=== PATIENT | male | born 1975 | race Hispanic/Latino ===

== ENCOUNTER 2017-01-10 20:22 | Emergency (ER) | payer OTHER ==
[2017-01-10 20:36] VITALS: BMI 36.6
[2017-01-10 20:37] VITALS: BP 139/82; PULSE 81; RESP 16; TEMP 97.6; O2SAT 98
--- NOTE | 2017-01-10 20:58 | ED PDOC ---
HPI: Skin/Bite Injury Time Seen by Provider: 01/10/17 20:33 Chief Complaint (Nursing): Abnormal Skin Integrity Chief Complaint (Provider): laceration History Per: Patient Additional Complaint(s): Pt reports he was putting dishes away in dish drain, he accidentally hit a knife handle, knife flipped up and injured him, (+) laceration to right middle finger. Bleeding controlled with dressing. Pt states his co-workers placed a clotting powder on cut to stop bleeding and placed a dressing over it. T.dap is not UTD Past Medical History Reviewed: Nursing Documentation, Vital Signs Vital Signs: Last Vital Signs Temp 97.6 F 01/10/17 20:36 Pulse 81 01/10/17 20:36 Resp 16 01/10/17 20:36 BP 139/82 01/10/17 20:36 Pulse Ox 98 01/10/17 20:58 - Medical History PMH: No Chronic Diseases - Surgical History Surgical History: No Surg Hx - Family History Family History: States: No Known Family Hx - Living Arrangements Living Arrangements: With Family - Social History Current smoker - smoking cessation education provided: No Alcohol: Social Drugs: Denies - Allergies Allergies/Adverse Reactions: Allergies Allergy/AdvReac Type Severity Reaction Status Date / Time No Known Allergies Allergy Verified 01/10/17 20:36 Review of Systems ROS Statement: Except As Marked, All Systems Reviewed And Found Negative Skin: Positive for: Other (laceration) Physical Exam - Reviewed Nursing Documentation Reviewed: Yes Vital Signs Reviewed: Yes - Physical Exam Appears: Positive for: Well, Non-toxic, No Acute Distress Head Exam: Positive for: ATRAUMATIC, NORMAL INSPECTION, NORMOCEPHALIC Skin: Positive for: Normal Color, Warm, DRY Eye Exam: Positive for: EOMI, Normal appearance, PERRL ENT: Positive for: Normal ENT Inspection Neck: Positive for: Normal, Painless ROM Cardiovascular/Chest: Positive for: Regular Rate, Rhythm Respiratory: Positive for: CNT, Normal Breath Sounds Gastrointestinal/Abdominal: Positive for: Normal Exam, Bowel Sounds, Soft Back: Positive for: Normal Inspection Extremity: Positive for: Normal ROM, Other ((+) 2 cm laceration to fingertip pulp, no active bleeding) Neurologic/Psych: Positive for: Alert, Oriented - ECG O2 Sat by Pulse Oximetry: 98 Medical Decision Making Medical Decision Making: Wound care discussed. suture removal in 7-10 days Disposition - Clinical Impression Clinical Impression: Laceration - Patient ED Disposition Is Patient to be Admitted: No - Disposition Disposition: Routine/Home Disposition Time: 22:06 Condition: STABLE Additional Instructions: Suture removal in 7-10 days Instructions: Laceration (ED) Forms: [email or web address] ([place]) Laceration - Laceration Repair laceration Wound Length (In cm): 2 Description Of Wound: Linear Wound Cleansed With: Sterile Saline Anesthesia: Lidocaine 1% Wound Examination: Irrigated With Saline Wound Closure: Suture Suture Technique And Material Used: Nylon (5-0) Wound Complexity: Simple
== END 2017-01-10 22:16 | disposition home or self-care (01) ==
LOC: H.ER 20:22
DX: S61.212A Laceration without foreign body of right middle finger without damage to nail, initial encounter (principal); W26.0XXA Contact with knife, initial encounter; Y99.0 Civilian activity done for income or pay; Z23 Encounter for immunization